=== PATIENT | male | born 2000 | race Caucasian/White ===

== ENCOUNTER 2022-05-23 00:15 | Emergency (ER) | payer MEDICAID, OTHER ==
[2022-05-23] MEDS ORDERED: Tetracaine 0.5% PF 4 ML BOT ONE (00:31)
[2022-05-23] MEDS ORDERED: Fluorescein Opthalmic Strip ONE (00:31)
[2022-05-23] MEDS ORDERED: Sodium Chloride 0.9% 1,000 ML ONE (01:19)
== END 2022-05-23 03:30 | disposition home or self-care (01) ==
LOC: MADERS 00:15
DX: Z77.098 Contact with and (suspected) exposure to other hazardous, chiefly nonmedicinal, chemicals (principal)
CPT/HCPCS: 99283; J7050